=== PATIENT | female | born 1975 | race Caucasian/White ===

== ENCOUNTER 2019-06-30 21:50 | Emergency (ER) | payer MEDICAID, OTHER ==
[~2019-06-30] VITALS: Ht 160 cm; Wt 86.4 kg
[2019-06-30 22:01] VITALS: BP 141/108
[2019-06-30] MEDS ORDERED: BUPIVAcaine/PF 2.5 mg/ml (0.25%) 30ml vial IJ ONE (22:45)
[2019-06-30] MEDS ORDERED: diazepam 5mg tablet PO ONE (22:45)
[2019-06-30] MEDS ORDERED: ketorolac trometh inj. 60 MG/2 ML VIAL IM ONE (22:45)
[2019-06-30] MEDS ORDERED: DIAZ5TAB PO (23:44)
== END 2019-07-01 00:08 | disposition home or self-care (01) ==
LOC: ER 21:51
DX: S16.1XXA Strain of muscle, fascia and tendon at neck level, initial encounter (principal); M79.7 Fibromyalgia; Z79.899 Other long term (current) drug therapy; X58.XXXA Exposure to other specified factors, initial encounter; Y93.89 Activity, other specified; Y92.89 Other specified places as the place of occurrence of the external cause; Y99.8 Other external cause status
CPT/HCPCS: 20552; 96372; 99284; J1885; J3490